=== PATIENT | male | born 1985 | race American Indian/Alaskan Native ===

== ENCOUNTER 2022-02-06 21:54 | Emergency (ER) | payer SELFPAY ==
[2022-02-06] MEDS ORDERED: HYDROmorphone 1 MG/1 ML INJ IV ONE ×3 (21:56→22:59)
[2022-02-06] MEDS ORDERED: TETANUS,DIPH,PERTUSS(ACELL) VACCINE 0.5 ML SYRINGE IM ONE (21:56)
[2022-02-06] MEDS ORDERED: SODIUM CHLORIDE 0.9% 1000 ML 1,000 ML IV ONE (21:56)
[2022-02-06] MEDS ORDERED: ONDANSETRON 4 MG/2 ML INJ IV ONE (21:56)
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
[2022-02-06 22:21] LABS: Mean Corpuscular HGB Conc 30 % (32-34); Mean Corpuscular Volume 80 fl (84-94); Platelet Count 373 K/mm3 (140-440); Red Blood Count 5.41 M/mm3 (3.65-5.03); Red Cell Distribution Width 15.4 % (13.2-15.2)
[2022-02-06 22:29] LABS: BUN/Creatinine Ratio 13; Blood Urea Nitrogen 13 mg/dL (9-20); Calcium 9.3 mg/dL (8.4-10.2); Hemolysis Index 7
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
[2022-02-06 23:59] VITALS: BP 134/72
[2022-02-07 00:23] LABS: Total Cells Counted 100
[2022-02-07 00:24] LABS: Basophils % (Manual) 0 % (0.0-1.8)
[2022-02-07 00:25] LABS: Hypochromasia 1+; Large Platelets Rare; Platelet Estimate Cons
== END 2022-02-07 01:20 | disposition hospice, inpatient (51) ==
LOC: ED 21:54
DX: S92.001A Unspecified fracture of right calcaneus, initial encounter for closed fracture (principal); W34.00XA Accidental discharge from unspecified firearms or gun, initial encounter; Y93.89 Activity, other specified; Y92.89 Other specified places as the place of occurrence of the external cause; Y99.8 Other external cause status
CPT/HCPCS: 36415; 73130; 73590; 73630; 80048; 85007; 85025; 86850; 86900; 86901; 90471; 90715; 96365; 96366; 96375; 96376; 99285; J0690; J1170; J2405